=== PATIENT | female | born 1995 | race Caucasian/White ===

== ENCOUNTER 2025-03-29 12:29 | Outpatient (CLI) | payer OTHER, SELFPAY ==
--- NOTE | ~2025-03-29 | US_ITS ---
US soft tissue head and neck 03/29/2025 12:41 Indication: Lymph node enlargement Procedure: Soft tissue ultrasound of the right lateral neck in the areas of palpable concern Comparison: No prior studies for comparison. Findings: There are normal-appearing lymph nodes of the right lateral neck in the areas of palpable concern measuring 9 and 7 mm respectively. No significant lymph node enlargement or pathologic appearance to the lymph nodes. No other masses. Impression: 1: Normal right cervical lymph nodes. Reviewed, dictated and finalized at location O. R OUT PLATE GLASS Impression: 1: Normal right cervical lymph nodes.
== END 2025-03-29 12:30 | disposition home or self-care (01) ==
LOC: GOSHIMG 12:30
PROVIDERS: PCP Otolaryngology; Visit Provider Otolaryngology
DX: R59.1 Generalized enlarged lymph nodes (principal)
CPT/HCPCS: 76536